=== PATIENT | female | born 1950 ===

== ENCOUNTER 2017-02-11 20:44 | Emergency (ER) | payer MEDICARE, OTHER ==
--- NOTE | 2017-02-11 21:20 | C.PDOC ---
History Of Present Illness 66 yr old female presents to ED as advised by PMD due to blood pressure being 210 systolic pressure, associated symptoms include GAR, numbness, and lightheadedness. In the ER, patient's blood pressure is found to be 173/98. Denies any chest pain, SOB, visual disturbance. Patient was hospitalized for similar symptoms approximately 7 years ago. Chief Complaint (Nursing): High Blood Pressure History Per: Family History/Exam Limitations: language barrier Onset/Duration Of Symptoms: Hrs (Sent by PMD) Current Symptoms Are (Timing): Better Associated Symptoms: Headache, Other (Lightheadedness). denies: Chest Pain, Blurred Vision Quality Of Symptoms: Asymptomatic Exacerbating Factor(s): Pos: None Recent travel outside of the [place]: No Past Medical History Reviewed: Historical Data, Nursing Documentation, Vital Signs Vital Signs: Last Vital Signs Temp 98 F 02/11/17 22:34 Pulse 61 02/11/17 23:12 Resp 17 02/11/17 23:12 BP 154/67 H 02/11/17 23:12 Pulse Ox 99 02/11/17 23:28 - Medical History PMH: HTN, Hypothyroidism Surgical History: No Surg Hx Family History: States: Unknown Family Hx - Social History Hx Alcohol Use: No Hx Substance Use: No - Immunization History Hx Tetanus Toxoid Vaccination: No Hx Influenza Vaccination: Yes Hx Pneumococcal Vaccination: Yes Review Of Systems Constitutional: Negative for: Fever, Weakness Eyes: Negative for: Vision Change Cardiovascular: Positive for: Light Headedness. Negative for: Chest Pain Respiratory: Negative for: Shortness of Breath Neurological: Positive for: Numbness (Sensation to bilateral legs), Headache Physical Exam - Physical Exam Appears: Non-toxic, No Acute Distress Skin: Normal Color, Warm, Dry Head: Atraumatic, Normacephalic Eye(s): bilateral: Normal Inspection, PERRL, EOMI Oral Mucosa: Moist Neck: Normal, Supple Chest: Symmetrical Cardiovascular: Rhythm Regular Respiratory: Normal Breath Sounds, No Rales, No Rhonchi, No Wheezing Gastrointestinal/Abdominal: Soft, No Tenderness Back: Normal Inspection Extremity: Normal ROM (5/5 motor lower and upper extremities ) Neurological/Psych: Oriented x3, Normal Speech, Normal Cranial Nerves Extremity: Right: No Drift, Left: No Drift, Upper: No Drift, Lower: No Drift ED Course And Treatment - Laboratory Results Result Diagrams: 02/11/17 21:47 02/11/17 21:47 ECG: Interpreted By Me, Viewed By Me ECG Rhythm: Sinus Rhythm ECG Interpretation: Normal Interpretation Of ECG: Focal PVCs, No acute ischemic changes, No old EKG for comparison. Rate From EC O2 Sat by Pulse Oximetry: 99 (Room air) Pulse Ox Interpretation: Normal - CT Scan/US CT Head Other Rad Studies (CT/US): Read By Radiologist, Radiology Report Reviewed CT/US Interpretation: EXAM: CT Head Without Intravenous Contrast. CLINICAL HISTORY: 66 years old, female; Pain; Headache; Headache not specified. TECHNIQUE: Axial computed tomography images of the head/brain without intravenous contrast. All CT scans at. this facility use one or more dose reduction techniques, viz.: automated exposure control; ma/kV. adjustment per patient size (including targeted exams where dose is matched to indication; i.e. head);. or iterative reconstruction technique. Coronal and sagittal reformatted images were created and reviewed. COMPARISON: No relevant prior studies available. FINDINGS: Brain: Prominence of the sulci and ventricular system consistent with atrophy. Hypodensity. throughout the white matter consistent with chronic small vessel ischemic change. No intracranial. mass, mass effect, or midline shift. No hemorrhage. Ventricles: No hydrocephalus. Bones/joints: Unremarkable. No acute fracture. Soft tissues: Unremarkable. Sinuses: Unremarkable as visualized. No acute sinusitis. Mastoid air cells: Unremarkable as visualized. No mastoid effusion. IMPRESSION: No acute intracranial abnormality. Medical Decision Making Medical Decision Making: Will order baseline tests, routine labs, and CT Head. Disposition - Disposition Disposition: HOME/ ROUTINE Disposition Time: 00:52 Condition: GOOD Additional Instructions: see your PMD next week for BP check Instructions: Hypertension (ED) Forms: General Discharge Instructions, [facility] (Turkmen) Print Language: SLOVENIAN - Clinical Impression Clinical Impression: Hypertension - Scribe Statement The provider has reviewed the documentation as recorded by the Wendyibjoel Jean All medical record entries made by the Scribe were at my direction and personally dictated by me. I have reviewed the chart and agree that the record accurately reflects my personal performance of the history, physical exam, medical decision making, and the department course for this patient. I have also personally directed, reviewed, and agree with the discharge instructions and disposition.
[2017-02-11 21:54] LABS: BASO # 0.1 K/uL (0.0-0.2); BASO % 1.1 % (0.0-2.0); EOS # 0.6 K/uL (0.0-0.7); EOS % 6.6 % (0.0-4.0); HEMATOCRIT 38.9 % (34.0-47.0); LYMPH # 3.6 K/uL (1.0-4.3); LYMPH % 38.5 % (20.0-40.0); MEAN CELL VOLUME 86.4 fL (81.0-99.0); MEAN CORPUSCULAR HEMOGLOBIN 28.7 pg (27.0-31.0); MEAN CORPUSCULAR HGB CONC 33.2 g/dL (33.0-37.0); MEAN PLATELET VOLUME 9.8 fL (7.2-11.7); MONO # 0.6 K/uL (0.0-0.8); MONO % 6.6 % (0.0-10.0); NRBC % 0.1 % (0.0-2.0); RED CELL DISTRIBUTION WIDTH 14.2 % (11.5-14.5); WHITE BLOOD COUNT 9.2 K/uL (4.8-10.8)
[2017-02-11 22:02] LABS: ALB/GLOB RATIO 1.5 (1.0-2.1); BILIRUBIN,TOTAL 0.7 mg/dL (0.2-1.3); CALCIUM 10.1 mg/dl (8.6-10.4); GFR AFRICAN-AMERICAN > 60; GLUCOSE,RANDOM 140 mg/dL (65-105); TOTAL PROTEIN 6.8 g/dL (6.3-8.3)
[2017-02-11 22:05] LABS: ALKALINE PHOSPHATASE 44 U/L (38-126); ALT/SGPT 40 U/L (9-52); AST/SGOT 46 U/L (14-36); BLOOD UREA NITROGEN 16 mg/dL (7-17); CARBON DIOXIDE 28 mmol/L (22-30); CHLORIDE 100 mmol/L (98-107); POTASSIUM 3.9 mmol/L (3.6-5.2); SODIUM 136 mmol/L (132-148)
--- NOTE | 2017-02-11 22:47 | CT ---
EXAM: CT Head Without Intravenous Contrast CLINICAL HISTORY: 66 years old, female; Pain; Headache; Headache not specified TECHNIQUE: Axial computed tomography images of the head/brain without intravenous contrast. All CT scans at this facility use one or more dose reduction techniques, viz.: automated exposure control; ma/kV adjustment per patient size (including targeted exams where dose is matched to indication; i.e. head); or iterative reconstruction technique. Coronal and sagittal reformatted images were created and reviewed. COMPARISON: No relevant prior studies available. FINDINGS: Brain: Prominence of the sulci and ventricular system consistent with atrophy. Hypodensity throughout the white matter consistent with chronic small vessel ischemic change. No intracranial mass, mass effect, or midline shift. No hemorrhage. Ventricles: No hydrocephalus. Bones/joints: Unremarkable. No acute fracture. Soft tissues: Unremarkable. Sinuses: Unremarkable as visualized. No acute sinusitis. Mastoid air cells: Unremarkable as visualized. No mastoid effusion. IMPRESSION: No acute intracranial abnormality.
[2017-02-11 23:10] VITALS: TEMP 98
[2017-02-11 23:13] VITALS: BP 154/67; PULSE 61; RESP 17
[2017-02-11 23:14] VITALS: O2SAT 99
--- NOTE | 2017-02-12 08:42 | RAD ---
PROCEDURE: CHEST RADIOGRAPH, 1 VIEW HISTORY: chest pain COMPARISON: None available. FINDINGS: LUNGS: Clear. PLEURA: No pneumothorax or pleural fluid seen. CARDIOVASCULAR: Normal. OSSEOUS STRUCTURES: No significant abnormalities. VISUALIZED UPPER ABDOMEN: Normal. OTHER FINDINGS: None. IMPRESSION: No active disease.
--- NOTE | 2017-02-15 11:31 | CARD ---
APPROVED REPORT EKG Measurement Heart [id number] <Conclusion> Sinus rhythm with frequent premature ventricular complexes Septal infarct, age undetermined Abnormal ECG
== END 2017-02-11 23:45 | disposition home or self-care (01) ==
LOC: C.ER 20:44
DX: I10 Essential (primary) hypertension (principal)

== ENCOUNTER 2017-08-31 06:26 | Day surgery (SDC) | payer MEDICARE ==
[2017-08-19 09:56] VITALS: BMI 29.2
[~2017-08-31 06:26] MED LIST: Ciprofloxacin 0.3% OPTH SOLN OD SCH; Flurbiprofen 0.03% Opht SOLN OD SCH; Lactated Ringer's 500 ML IV ONE; Phenylephrine 2.5% Opht Soln OD SCH; Tropicamide 1% Opht SOLUTION OD SCH; acetaZOLAMIDE 500 mg SR Cap PO ONE
[2017-08-31 07:46] VITALS: RESP 18
[2017-08-31] MEDS ORDERED: Lactated Ringer's 500 ML IV ONE (08:05)
[2017-08-31] MEDS ORDERED: Midazolam 2 MG/2 ML VIAL ONE (10:11)
[2017-08-31] MEDS: Lidocaine 2% MPF (5 ml) Inj ONE ×2 (10:14→10:16)
[2017-08-31] MEDS ORDERED: acetaZOLAMIDE 500 mg SR Cap PO SCH (11:00)
[2017-08-31 11:16] VITALS: TEMP 97; O2SAT 100
[2017-08-31 11:39] VITALS: BP 105/70; PULSE 69
[2017-08-31] MEDS ORDERED: Chondroitin/Hyaluronate Opth Syringe KIT (0.55 ml-0.5 ml) IO ONE (11:41)
[2017-08-31] MEDS ORDERED: Tobramycin/Dexamethasone OPHT OINT ONE (11:41)
[2017-08-31] MEDS ORDERED: Povidone Iodine Ophthalmic 5% Soln ONE (11:41)
[2017-08-31] MEDS ORDERED: Carbachol 0.01% IO ONE (11:41)
[2017-08-31] MEDS ORDERED: Tetracaine 0.5% Ophth (OR ONLY) ONE (11:41)
[2017-08-31] MEDS ORDERED: Hyaluronidase Human, Recombi 150 U/ML VIAL ONE (11:42)
--- NOTE | 2017-08-31 22:35 | OP ---
PROCEDURE DATE: 08/31/2017 PREOPERATIVE DIAGNOSIS: Matured cataract, right eye with pupillary myosis. POSTOPERATIVE DIAGNOSIS: Matured cataract, right eye with pupillary myosis. OPERATIVE PROCEDURE: Phacoemulsification, right eye with lens implant utilizing Malyugin ring. ANESTHESIA: Local intravenous sedation. SURGEON: Ottoniel Baltazar MD CO-SURGEON: Tono Abebe MD. PROCEDURE: The patient was brought into the operating room, placed in supine position, prepped and draped in the usual fashion for ophthalmic surgery. Lid speculum was inserted, lids and exposing globe. On inspection, there was noted to be a mature cataract with a 3-mm pupil. A side-port incision was made superiorly and inferiorly with a disposable sharp blade. Viscoat was injected into the anterior chamber to deepen it. The pupil did not dilate with Viscoat. A near clear corneal incision was made temporally with a 2.75-mm keratome temporally. A Malyugin ring was then inserted through the keratome incision and under the pupillary borders resulting in 6-mm pupil dilation. Capsulorrhexis was then performed with Utrata forceps. Hydrodissection was carried out with balanced salt solution. Nucleus was then phacoemulsified. Remaining cortical fragments were removed with a split irrigation and aspiration system. The capsular sac was filled with Provisc. A posterior chamber lens was then injected into the sac and rotated into horizontal position. The Malyugin ring was then removed from the anterior chamber. Provisc was then aspirated out of the anterior chamber. The pupil was constricted with Miochol. The wound was hydrated with balanced salt solution and found to be watertight. Topical Betadine, Timoptic, TobraDex ointment, and pressure patch were applied. The patient tolerated the procedure well. Ottoniel Baltazar MD
== END 2017-08-31 11:45 | disposition home or self-care (01) ==
LOC: C.SDS 06:26
PROVIDERS: ATTEND Ophthalmology
DX: H25.11 Age-related nuclear cataract, right eye (principal)
CPT/HCPCS: 66984; J2250; J3010; J3470; J7120; V2632

== ENCOUNTER 2017-09-14 07:39 | Day surgery (SDC) | payer MEDICARE ==
[2017-08-19 09:55] VITALS: BMI 29.2
[~2017-09-14 07:39] MED LIST changes: -Ciprofloxacin 0.3% OPTH SOLN OD SCH; +Ciprofloxacin 0.3% OPTH SOLN OS SCH; -Flurbiprofen 0.03% Opht SOLN OD SCH; +Flurbiprofen 0.03% Opht SOLN OS SCH; +Lidocaine 2% MPF (5 ml) Inj ONE; -Phenylephrine 2.5% Opht Soln OD SCH; +Phenylephrine 2.5% Opht Soln OS SCH; -Tropicamide 1% Opht SOLUTION OD SCH; +Tropicamide 1% Opht SOLUTION OS SCH
[2017-09-14] MEDS ORDERED: Povidone Iodine Ophthalmic 5% Soln ONE (07:42)
[2017-09-14] MEDS ORDERED: Tetracaine 0.5% Ophth (OR ONLY) ONE (07:42)
[2017-09-14] MEDS ORDERED: Chondroitin/Hyaluronate Opth Syringe KIT (0.55 ml-0.5 ml) IO ONE (07:43)
[2017-09-14] MEDS ORDERED: Hyaluronidase Human, Recombi 150 U/ML VIAL ONE (07:43)
[2017-09-14] MEDS ORDERED: Ciprofloxacin 0.3% OPTH SOLN OS SCH (09:30)
[2017-09-14] MEDS ORDERED: Lactated Ringer's 1,000 ML IV ONE (09:30)
[2017-09-14] MEDS ORDERED: Midazolam 2 MG/2 ML VIAL ONE (10:26)
[2017-09-14] MEDS: Carbachol 0.01% IO ONE ×2 (12:12→12:18)
[2017-09-14] MEDS: Tobramycin/Dexamethasone OPHT OINT ONE ×2 (12:13→12:19)
[2017-09-14 12:44] VITALS: PULSE 96; RESP 18; TEMP 98
[2017-09-14] MEDS ORDERED: acetaZOLAMIDE 500 mg SR Cap PO ONE (13:00)
[2017-09-14 13:12] VITALS: BP 118/76; O2SAT 97
--- NOTE | 2017-09-14 22:21 | OP ---
PROCEDURE DATE: 09/14/2017 PREOPERATIVE DIAGNOSIS: Cataract, left eye. POSTOPERATIVE DIAGNOSIS: Cataract, left eye. OPERATIVE PROCEDURE: Phacoemulsification, left eye, insertion of posterior chamber implant. SURGEON: Ottoniel Baltazra MD CO-SURGEON: Tono Abebe MD ANESTHESIA TYPE: Local IV sedation. PROCEDURE: The patient was brought into the operating room, placed in supine position, prepped and draped in the usual fashion for ophthalmic surgery. Lid speculum was inserted, lids and exposing globe. A side-port incision was made superiorly and inferiorly with a disposable sharp blade. Anterior chamber was filled with Viscoat. A near clear corneal incision was made temporally with a 2.75-mm keratome. Capsulorrhexis was then performed with Utrata forceps. Hydrodissection carried out with balanced salt solution. Nucleus was phacoemulsified. Remaining cortical fragments were removed with a split irrigation and aspiration system. The capsular sac was filled with Provisc. A posterior chamber lens was then injected into the capsular sac and rotated into horizontal position. Provisc was aspirated out of the anterior chamber. The pupil was constricted with Miochol. The wound was found to be watertight. Topical Betadine, Timoptic, and TobraDex ointment and pressure patch were applied. The patient tolerated the procedure well. Ottoniel Baltazar MD
== END 2017-09-14 13:22 | disposition home or self-care (01) ==
LOC: C.SDS 07:39
PROVIDERS: ATTEND Ophthalmology
DX: H25.12 Age-related nuclear cataract, left eye (principal)
CPT/HCPCS: 66984; J2250; J3010; J3470; J7120; V2632